=== PATIENT | male | born 1945 | race Native Hawaiian/Other Pacific Islander ===

== ENCOUNTER 2019-02-14 09:15 | Day surgery (SDC) | payer MEDICARE, OTHER ==
[~2019-02-14 09:15] MED LIST: ACETAMINOPHEN 325 MG TAB PO PRN; ACETAMINOPHEN W/ CODEINE 300MG/30MG TABLET PO PRN; ACETAMINOPHEN W/ CODEINE 300MG/60MG TABLET PO PRN; AL HYDROX/MAG HYDROX 30ML UD PO PRN; BISACODYL 10 MG SUPP RC PRN; DIPHENHYDRAMINE HCL 25 MG CAPSULE PO PRN; HYDROCODONE/APAP 5/325MG TABLET PO PRN; HYDROCODONE/APAP 7.5/325MG TABLET PO PRN; HYDROMORPHONE HCL 2 MG/ML VIAL IM PRN; KETOROLAC 30 MG/ML VIAL IVP PRN; MAGNESIUM HYDROXIDE 30 ML UDC PO PRN; METOCLOPRAMIDE HCL 10 MG/2 ML VIAL IVP PRN; NALOXONE 0.4 MG/1 ML VIAL IVP PRN; ONDANSETRON HCL IV 4 MG/2 ML VIAL IVP PRN; PROMETHAZINE HCL 12.5 MG in 0.9 % SODIUM CHLORIDE 100ML 50 ML IVPB PRN; TRAMADOL HCL 50 MG TABLET PO PRN; ZOLPIDEM TARTRATE 5 MG TABLET PO PRN
[2019-02-14] MEDS ORDERED: PROPOFOL 10 MG/ML VIAL IV ONE (09:16)
[2019-02-14] MEDS ORDERED: MIDAZOLAM HCL 2MG/2ML VIAL IV ONE (09:16)
[2019-02-14] MEDS ORDERED: DEXAMETHASONE 4 MG/ML 1ML VIAL IVP ONE (09:16)
[2019-02-14] MEDS ORDERED: KETOROLAC 30 MG/ML VIAL IVP ONE (09:16)
[2019-02-14] MEDS ORDERED: ROPIVACAINE HCL (NAROPIN) /PF 5MG/ML 20ML VIAL IV ONE (09:16)
[2019-02-14] MEDS ORDERED: LIDOCAINE 2% MDV (20MG/ML) 20ML VIAL IV ONE (09:16)
[2019-02-14 10:21] LABS: ABO GROUP A; RH TYPE POSITIVE
[2019-02-14 10:22] LABS: ANTIBODY SCREEN NEGATIVE (NEGATIVE)
[2019-02-14] MEDS: RINGERS SOLUTION,LACTATED 1,000 ML IV ONE ×2 (10:25→12:25)
[2019-02-14] MEDS: VANCOMYCIN 1GM/200ML PREMIX 1 GM/200 ML PIGGYBACK IVPB ONE (10:28)
[2019-02-14] MEDS: ACETAMINOPHEN 500 MG TABLET PO ONE (10:33)
[2019-02-14] MEDS: SCOPOLAMINE 1 PATCH TDSY TD ONE (10:33)
[2019-02-14] MEDS: CELECOXIB 100 MG CAPSULE PO ONE (10:34)
[2019-02-14] MEDS: METOCLOPRAMIDE 10 MG TABLET PO ONE (10:35)
[2019-02-14] MEDS: FAMOTIDINE 20MG TABLET PO ONE (10:35)
[2019-02-14] MEDS: BUPIVACAINE 0.5% W/EPI MPF 30 ML VIAL IU ONE (12:22)
[2019-02-14] MEDS: TRANEXAMIC ACID 1,000 MG/10 ML ML IU ONE (12:22)
[2019-02-14] MEDS: BUPIVACAINE LIPOSOME 266MG/20ML VIAL SQ ONE (12:22)
[2019-02-14] MEDS: VANCOMYCIN HCL 1 GM VIAL IR ONE (12:23)
[2019-02-14] MEDS: VANCOMYCIN HCL 1 GM VIAL IU ONE (12:23)
[2019-02-14] MEDS: TRANEXAMIC ACID 1,000 MG/10 ML ML IVPB ONE (12:24)
[2019-02-14] MEDS ORDERED: DEXTROSE 5 % AND 0.9 % NACL 1,000 ML IV PRN (14:30)
--- NOTE | 2019-02-14 14:39 | Operative Note ---
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 OPERATION: 1. RESECTION ARTHROPLASTY OF THE PATELLAR COMPONENT WITH NO REPLACEMENT. 2. EXCHANGE OF TIBIAL POLY INSERT. SURGEON: Sean Wahl M.D. ANESTHESIA: Spinal. ANESTHESIA PROVIDER: Guerrero Doty CRNA COMPLICATIONS: None. ESTIMATED BLOOD LOSS: Minimal. No tourniquet. OPERATIVE FINDINGS: Loose patellar component scarred in the inferior tibial patella and unstable knee with increased varus/valgus laxity. COMPONENTS PLACED: A size 8 12 mm thick tibial poly insert. INDICATIONS: This is a 73-year-old male who is well known to myself, he is over years status post right total knee arthroplasty. He was doing well until several months prior to his presentation to the office. He fell cutting some wood directly on his knee he recalled. He fell hard on it and does complain of pain and catching in the knee. He had x-rays taken in my office in October which showed a failed sheared off patellar component which was inferior to the main portion of the patella. The patella appeared thin as well and somewhat eroded. At this point we scheduled him for at least removal of the patellar component, possible revision arthroplasty and possible exchange of the tibial poly insertion. I explained all risks and benefits in detail for the diagnosis and procedure including, but not limited to infection, nerve injury, vessel injury, persistent pain, stiffness, numbness and tingling in the knee, periprosthetic fracture, need for resection, arthroplasty if components become infected or loosen, nerve injury, vessel injury, blood clot, and need for anticoagulation, to prevent blood clots and risks associated with these medications. All of his questions were answered. Rehab course was outlined. He agreed to proceed. PROCEDURE: The patient was brought to the Operating Room, placed in the supine position in the Department of Surgery and spinal anesthesia induced. The right lower extremity and knee were prepped and draped in sterile fashion. The right knee was prepped again with ChloraPrep after it was draped. Intraoperative timeout was performed. Next, the leg was exsanguinated with Esmarch. No tourniquet was used. We used Confluence Solars electrocautery on each layer of the procedure and approach during the entire course of the case. Next, skin and subcutaneous tissue dissected down after we injected our mixture of 0.5% Marcaine with Epi, Exparel and tranexamic acid. Incised the capsule medially around the medial border of the patella to the tibial tubercle, partially resected the retropatellar fat pad scarring. There is thick dense scarring throughout the knee. We elevated the capsule partially medially so that we could expose the patella and the patellar component was inferior to the patella, inferomedial was scarred in, we simply removed some of the scar around its periphery and it came right out easily, completely loose and failed. Debrided around the patella, thoroughly inspected it in particularly the thickness and the thickness centrally and laterally was not adequate enough for re-fixation of a new patellar component less than 7-8 mm of bone there, therefore, we just simply debrided, did not replace with another patella. It was also noticed during the case that he had significant laxity medial and laterally, about 5-6 mm of medial and lateral varus/valgus opening, therefore, we would like to proceed with extension and flexion at 30 degrees, therefore, it was elected to proceed with exchange of the tibial poly insert to a thicker insert. We removed the insertion, inspected it, there was not any significant wear into the femoral component it was well fixed and tacked and the surface was good and the tibial components are well fixed. We also took intraoperative cultures. Next we trialed to a 12 mm, this allowed for 1-2 mm of varus/valgus laxity and we felt that would be a good thickness to stabilize his knee, therefore, we utilized that, inserted that, tapped it down and verified it was interlocking mediolaterally. Now he has symmetric flexion/extension gaps, 1-2 mm opening and flexion and extension. Very irrigated copiously the joint with pulse lavage antibiotic solution, closed the capsule and flexion using running #2 Quill suture, closed the skin with 2-0 Vicryl, and a sterile dressing was applied with NORMA dressing after cauterizing and injecting further all of the deep tissues with our mixture. The patient tolerated the procedure well. No intraoperative complications. Sponge, needle, and blade counts correct. Sent to Recovery Room stable. Neurovascularly intact. Discharged as an outpatient and follow-up in two weeks. JOB NUMBER: [id number] [facility]
[2019-02-14] MEDS: VANCOMYCIN HCL 500 MG in 0.9 % SODIUM CHLORIDE 100ML 100 ML IV SCH (14:52)
--- NOTE | 2019-02-14 16:23 | Rehab Evaluation ---
Patient Information - Patient Information Diagnosis: right total knee revision Ordered Treatment: OT Evaluate and Treat Status: Initial Evaluation Surgery: Yes (right total knee revision) Date of Surgery: 02/14/19 Past Medical/Surgical Hx: PAST MEDICAL/SURGICAL HISTORY Past Surgical History LTKA 2016 RTKA 2016 [facility]Y [facility] RIGHT SHOULDER RTC PMH - Respiratory Hx Respiratory Disorders Yes Hx Pneumonia Yes: " A YOUNGSTER" PMH - Cardiovascular Hx Cardiovascular Disorders Yes Hx Hypertension Yes: CONTROLLED WITH MEDS Exercise Tolerance Fair PMH - Neuro Hx Neurological Disorders Yes Hx Neuropathy Yes: LE'S PMH - GI Hx Gastrointestinal Disorders No PMH - Hx Genitourinary Disorders Yes Hx Bladder Problem Yes: NOCTURA Hx Prostate Problems Yes: BPH PMH - Endocrine Hx Endocrine Disorders No PMH - Musculoskeletal Hx Musculoskeletal Disorders Yes Hx Arthritis Yes Comment: RIGHT KNEE PAIN PMH - Psych Hx Psychiatric Problems Yes Hx Anxiety Yes Hx Depression Yes Comment: PTSD- DO NOT TOUCH PT TO WAKE HIM UP IN RECOVERY PMH - Hematology/Oncology Hx Hematology/Oncology Yes Disorders Hx Anemia Yes Premorbid Status: Detail (Pt lives with spouse in a 1 story house, no steps at the entrance. He has a walk in shower with seat, grab bar and hand held shower as well as an elevated toilet with grab bars. He reports he is typically responsible for all IADL tasks. He has a 2 wheeled walker, 4 wheeled walker, cane and crutches.) Precautions: [place], Fall, Other (WBAT right LE) - Time With Patient Total Time Spent With Patient (Min): 35 Treatment Procedures: Detail (OT eval low complexity) Subjective Information - Subjective Information Per Patient Objective Data - Pain Pain Present: No - Mental Status Patient Orientation: Oriented x3 - Visual Perception Appears within normal limits for therapeutic activities - ROM Within normal limits (Fmailia UE AROM WNL) - Strength/Tone Within normal limits (Familia UE strength WNL) - Coordination Appears within normal limits for therapeutic activities - Bed Mobility Independent - Transfers Independent - Balance Balance Sitting: Good Balance Standing: Good - Sensation Intact - Gait Detail (Pt ambulating in room with 2 wheeled walker and SBA) - ADL's/IADL's Detail (Pt educated and able to demonstrate Ind with modified LE dressing techniques including donning pants and slip on shoes. Reviewed kitchen modifications and safety, pt reports he has everything all set up.) Therapy Assessment - Therapy Assessment Detail (Ind with lower body dressing.) Problem List - Problem List Occupational Therapy Problem List: Detail (No IP OT problems identified.) Goals - Goals Occupational Therapy Goals: No IP OT goals identified. Prognosis - Prognosis Good Plan - Plan Occupational Therapy Plan: Discharge from IP OT at this time.
--- NOTE | 2019-02-14 16:25 | Rehab Evaluation ---
Patient Information - Patient Information Diagnosis: R knee DJD Ordered Treatment: PT Evaluate and Treat Status: Initial Evaluation Surgery: Yes (R total knee patellar revision) Date of Surgery: 02/14/19 Past Medical/Surgical Hx: PAST MEDICAL/SURGICAL HISTORY Past Surgical History LTKA 2016 RTKA 2016 [facility] RIGHT SHOULDER RTC PMH - Respiratory Hx Respiratory Disorders Yes Hx Pneumonia Yes: " A YOUNGSTER" PMH - Cardiovascular Hx Cardiovascular Disorders Yes Hx Hypertension Yes: CONTROLLED WITH MEDS Exercise Tolerance Fair PMH - Neuro Hx Neurological Disorders Yes Hx Neuropathy Yes: LE'S PMH - GI Hx Gastrointestinal Disorders No PMH - Hx Genitourinary Disorders Yes Hx Bladder Problem Yes: NOCTURA Hx Prostate Problems Yes: BPH PMH - Endocrine Hx Endocrine Disorders No PMH - Musculoskeletal Hx Musculoskeletal Disorders Yes Hx Arthritis Yes Comment: RIGHT KNEE PAIN PMH - Psych Hx Psychiatric Problems Yes Hx Anxiety Yes Hx Depression Yes Comment: PTSD- DO NOT TOUCH PT TO WAKE HIM UP IN RECOVERY PMH - Hematology/Oncology Hx Hematology/Oncology Yes Disorders Hx Anemia Yes Premorbid Status: Detail (The patient was independent with all mobility prior to surgery.) Social History: Detail (The patient lives with spouse in a one story house with no steps at the enterance. The bathroom is equipped with a : walk in shower, hand held shower,shower bench, elevated toilet. Grab bars are present by the shower and toilet. The patient has a walker with wheels and a single point cane.) Precautions: [place], Fall, Other (WBAT on the R LE.) - Time With Patient Total Time Spent With Patient (Min): 30 Treatment Procedures: Detail (Initial Evaluation, low complexity) Subjective Information - Subjective Information Per Patient (The patient had no complaints of pain.) Objective Data - Mental Status Patient Orientation: Oriented x3 - Visual Perception Appears within normal limits for therapeutic activities - ROM Not within normal limits (The patient's R knee AROM was limited s/p surgery. All other AROM is WNL.) - Strength/Tone Not within normal limits (The patient's LE strength was not tested s/p however is WFL.) - Bed Mobility Independent (The patient is independent with supine to and from sit transfer and scooting up in bed.) - Transfers Independent (The patient is independent with sit to and from stand transfer.) - Balance Balance Sitting: Good Balance Standing: Good - Sensation Intact - Gait Detail (The patient ambulated with front wheeled walker a distance of 120 feet x 1 independently WBAT on the R LE. The patient does not have stairs at home but was able to verbalize the proper technique should he encounter stairs.) Therapy Assessment - Therapy Assessment Detail (The patient was independent with bed mobility, transfers and ambulation. The patient has met all inpt. goals and is discharged from inpt. PT.) Patient Education - Patient Education Teaching Topic: Exercise/Activity (HEP was reviewed including seated heel slides, hamstring curls, quad sets, ankle pumps, SLR and gluteal sets.) Response: Return Demonstration Teaching Method: Discussion, Demonstration Teaching Recipient: Patient Barriers To Learning: None Problem List - Problem List Physical Therapy Problem List: Detail (Decreased R knee AROM) Goals - Goals Physical Therapy Goals: The pt. has met all inpt. PT goals and is discharged from inpt. PT. Prognosis - Prognosis Good Plan - Plan Physical Therapy Plan: The patient is discharged from inpt. PT and is to continue with Home PT.
[2019-02-14] MEDS ORDERED: DOCUSATE SODIUM 100 MG CAPSULE PO SCH (22:00)
[2019-02-14] MEDS ORDERED: GABAPENTIN 300 MG CAPSULE PO SCH (22:00)
[2019-02-14] MEDS ORDERED: BUPROPION HCL 150 MG TAB.SR.12H PO SCH (22:00)
[2019-02-14] MEDS ORDERED: TERAZOSIN HCL 1 MG CAPSULE PO SCH (22:00)
[2019-02-14] MEDS ORDERED: CITALOPRAM 20 MG TABLET PO SCH (22:00)
[2019-02-14] MEDS ORDERED: FERROUS SULFATE 325 MG TAB PO SCH (22:00)
[2019-02-15] MEDS ORDERED: RIVAROXABAN 10 MG TABLET PO SCH (10:00)
[2019-02-15] MEDS ORDERED: LISINOPRIL 20 MG TABLET PO SCH (10:00)
[2019-02-15] MEDS ORDERED: CELECOXIB 100 MG CAPSULE PO SCH (10:00)
[2019-02-15] MEDS ORDERED: HYDROCHLOROTHIAZIDE 25 MG TABLET PO SCH (10:00)
== END 2019-02-14 16:40 | disposition home health service (06) ==
LOC: SUR 09:15 → MEDSURG 14:09 → SUR 16:40
PROVIDERS: ATTEND Orthopaedic Surgery
DX: T84.092A Other mechanical complication of internal right knee prosthesis, initial encounter (principal); I10 Essential (primary) hypertension; N40.0 Benign prostatic hyperplasia without lower urinary tract symptoms; F43.10 Post-traumatic stress disorder, unspecified; E66.9 Obesity, unspecified
CPT/HCPCS: 86850; 86900; 86901; C1776; J1885; J3370; J7120